=== PATIENT | female | born 1950 | race Caucasian/White ===

== ENCOUNTER 2024-11-06 02:27 | Emergency (ER) | payer OTHER, SELFPAY ==
[2024-11-06 02:32] VITALS: BP 150/104
== END 2024-11-06 03:19 | disposition left against medical advice (07) ==
LOC: EMR 02:27
PROVIDERS: EMERGENCY PHYSICIAN Student in an Organized Health Care Education/Training Program
DX: R07.9 Chest pain, unspecified (principal); Z53.21 Procedure and treatment not carried out due to patient leaving prior to being seen by health care provider
CPT/HCPCS: 93005